=== PATIENT | male | born 1945 | race Caucasian/White ===

== ENCOUNTER 2020-08-12 18:36 | Emergency (ER) | payer MEDICAID, MEDICARE ==
[~2020-08-12] VITALS: Ht 165.1 cm; Wt 69.4 kg
[2020-08-12 18:40] VITALS: BP 143/63
--- NOTE | 2020-08-12 18:49 | NUR ---
C/O CONSTIPATION AND BILAT LOWER QUADRANT ABD PAIN 05/04. PT STATES LBM WAS 08/10/20. PT DENIES N/V. ABD SOFT/FLAT AND NON TENDER TO PALPATION, BOWEL SOUNDS PRESENT X4. BED IN LOW POSITION, SIDE RAIL UP X1
--- NOTE | 2020-08-12 18:53 | NUR ---
XRAY AT BEDSIDE
--- NOTE | 2020-08-12 19:16 | NUR ---
REPORT RECEIVED FROM BETINA RIVERA FOR CONTINUITY OF CARE
--- NOTE | 2020-08-12 19:27 | NUR ---
ERMD AT BEDSIDE
[2020-08-12] MEDS ORDERED: SODIUM PHOSPHATE 118 ML ENEM RC ONE (19:30)
--- NOTE | 2020-08-12 19:48 | NUR ---
ADMINISTERED FLEET ENEMA, PT TOLERATED WELL.
[2020-08-12] MEDS ORDERED: MINERAL OIL 135 ML ENEM RC ONE (20:15)
--- NOTE | 2020-08-12 20:19 | NUR ---
PT STATES LITTLE RELIEF WITH FLEET ENEMA. ERMD MADE AWARE. ORDERS RECEIVED. MINERAL OIL ENEMA ADMINISTERED. PT TOLERATED WELL.
[2020-08-12 21:07] VITALS: BP 143/63
--- NOTE | 2020-08-12 21:07 | NUR ---
Patient discharged with v/s stable. Written and verbal after care instructions given and explained. Patient alert, oriented and verbalized understanding of instructions. Ambulatory with steady gait. All questions addressed prior to discharge. ID band removed. Patient advised to follow up with PMD. Opportunity to ask questions provided and answered.
== END 2020-08-12 21:07 | disposition home or self-care (01) ==
LOC: MED 18:36
DX: K59.00 Constipation, unspecified (principal); I11.0 Hypertensive heart disease with heart failure; E11.9 Type 2 diabetes mellitus without complications; Z98.890 Other specified postprocedural states
CPT/HCPCS: 74018; 99284; Q0092

== ENCOUNTER 2021-01-10 17:51 | Emergency (ER) | payer MEDICARE ==
[~2021-01-10] VITALS: Ht 170.2 cm; Wt 68.0 kg
[2021-01-10 18:07] VITALS: BP 168/70
--- NOTE | 2021-01-10 18:45 | NUR ---
PT ON MONITOR
--- NOTE | 2021-01-10 18:53 | NUR ---
75 YEAR OLD MALE COMPLAINS OF CHEST PAIN X LAST NIGHT. PER PATIENT, HE FELT SEVERE CHEST PAIN 10/10 WITH SOB LAST NIGHT PROMPTING HIM TO CONSUME 3 DOSES NITROGLYCERIN. PATIENT FELT RELIEF POST MEDICATION ADMINISTRATION. TODAY, SIMILAR CHEST PAIN FELT; DENIES SOB, NAUSEA, VOMITING, SWEATING, TINGLING SENSATION, DIZZINESS. NO NITROGLYCERIN ADMINISTRATION TODAY. NORMAL HEART RATE AND RHYTHM HEARD. HR 67, BP 132/81, SPO2 98% RA. AO4, BREATHING EVEN AND UNLABORED, SKIN WARN AND DRY. BED IN LOWEST POSITION, LOCKED, X1 SIDERAIL UP. PMH - OPEN HEART SX NKA
[2021-01-10 19:00] LABS: BASOPHILS # (AUTO) 0.1 K/uL (0.00-0.22); EOSINOPHILS # (AUTO) 0.3 K/uL (0-0.4); EOSINOPHILS % (AUTO) 4.4 % (0.0-4.0); HEMATOCRIT 36.9 % (36-52); HEMOGLOBIN 12.4 g/dL (12.0-18.0); LYMPHOCYTES # (AUTO) 2.9 K/uL (2.0-11.5); MEAN CORPUSCULAR HEMOGLOBIN 30 pg (27-31); MEAN CORPUSCULAR HGB CONC 34 g/dL (33-37); MEAN CORPUSCULAR VOLUME 89.5 fL (80-94); MONOCYTES # (AUTO) 0.6 K/uL (0.8-1.0); MONOCYTES % (AUTO) 9.1 % (1.7-9.3); NEUTROPHILS # (AUTO) 3.1 K/uL (1.8-7.7); NEUTROPHILS % (AUTO) 44.5 % (42.2-75.2); PLATELET COUNT (AUTO) 155 K/uL (140-450); RED BLOOD CELL COUNT(AUTO) 4.12 MIL/uL (4.20-6.10); RED CELL DISTRIBUTION WIDTH 14.2 % (11.6-13.7)
--- NOTE | 2021-01-10 19:05 | NUR ---
REPORT GIVEN TO KAREN RIVERA. TRANSFER OF CARE AT THIS POINT.
--- NOTE | 2021-01-10 19:14 | NUR ---
Assumed patient care. Received report from NICOLE Cantrell
[2021-01-10 19:15] LABS: ALBUMIN 4.1 g/dL (3.4-5.0); ANION GAP 9.9 (8-16); ASPARTATE AMINOTRANSFERASE 14 U/L (15-37); CHLORIDE 105 mmol/L (98-107); CREATININE 0.9 mg/dL (0.6-1.3); GLUCOSE 122 mg/dL (74-106); POTASSIUM 3.9 mmol/L (3.5-5.1); SODIUM SERUM 141 mmol/L (136-145); TOTAL BILIRUBIN 0.4 mg/dL (0.0-1.0); UREA NITROGEN, BLOOD 14 mg/dL (7-18)
[2021-01-10 21:30] VITALS: BP 156/63
--- NOTE | 2021-01-10 21:31 | NUR ---
Patient does not wish to proceed with medical care recommended by Dr. Beltran. Patient given information related to possible complications, up to and including , which could occur as a result of leaving hospital at this time. Patient verbalizes understanding of risks involved leaving against medical advice. Patient has signed AMA form.
== END 2021-01-10 21:31 | disposition left against medical advice (07) ==
LOC: MED 17:51
DX: I25.10 Atherosclerotic heart disease of native coronary artery without angina pectoris (principal); I10 Essential (primary) hypertension; E11.9 Type 2 diabetes mellitus without complications; E78.5 Hyperlipidemia, unspecified; Z95.1 Presence of aortocoronary bypass graft
CPT/HCPCS: 36415; 71045; 80053; 83880; 84484; 85025; 93005; 99285

== ENCOUNTER 2021-01-16 13:15 | Emergency (ER) | payer MEDICARE ==
[~2021-01-16] VITALS: Ht 170.2 cm; Wt 68.0 kg
--- NOTE | 2021-01-16 13:22 | NUR ---
PT AMBULATED TO BED 3.
[2021-01-16 13:27] VITALS: BP 147/69
--- NOTE | 2021-01-16 13:34 | NUR ---
75 YEAR OLD MALE COMPLAINS OF CHEST PAIN X TODAY. PATIENT STATES SITTING DOWN WHEN ONSET OF PAIN CAME ABOUT. DENIES NAUSEA/VOMITING, SOB, DIZZINESS, SWEATING, HEADACHE. PAIN 4/10, RADIATED TO LEFT SHOULDER/JAW, LASTED MINUTES. PATIENT ADMINISTERED 3 NITRO TO ADDRESS PAIN; EFFECTIVE IN RELIEVING PAIN. PATIENT CAME TO ER LAST WEEK FOR SAME REASON. AO4, BREATHING EVEN AND UNLABORED, SKIN WARM AND DRY. BED IN LOWEST POSITION, LOCKED, X1 SIDERAIL UP. PATINET ON MONITOR. PMH - HDL, HTN, DM, HEART SX NKA
[2021-01-16] MEDS ORDERED: ASPIRIN 81 MG TAB.CHEW PO ONE (14:05)
[2021-01-16 14:13] LABS: BASOPHILS # (AUTO) 0.1 K/uL (0.00-0.22); BASOPHILS % (AUTO) 0.8 % (0.0-2.0); EOSINOPHILS # (AUTO) 0.3 K/uL (0-0.4); EOSINOPHILS % (AUTO) 3.9 % (0.0-4.0); HEMATOCRIT 36.1 % (36-52); HEMOGLOBIN 12.2 g/dL (12.0-18.0); LYMPHOCYTES # (AUTO) 2.7 K/uL (2.0-11.5); MEAN CORPUSCULAR HEMOGLOBIN 30 pg (27-31); MEAN CORPUSCULAR HGB CONC 34 g/dL (33-37); MEAN CORPUSCULAR VOLUME 90.3 fL (80-94); MONOCYTES # (AUTO) 0.7 K/uL (0.8-1.0); MONOCYTES % (AUTO) 8.6 % (1.7-9.3); NEUTROPHILS # (AUTO) 3.8 K/uL (1.8-7.7); NEUTROPHILS % (AUTO) 50.7 % (42.2-75.2); PLATELET COUNT (AUTO) 144 K/uL (140-450); RED CELL DISTRIBUTION WIDTH 13.7 % (11.6-13.7); WHITE BLOOD COUNT (AUTO) 7.6 K/uL (4.8-10.8)
[2021-01-16 14:26] LABS: ALBUMIN 4.1 g/dL (3.4-5.0); ASPARTATE AMINOTRANSFERASE 12 U/L (15-37); CARBON DIOXIDE 26.8 mmol/L (21-32); CHLORIDE 107 mmol/L (98-107); CREATININE 0.8 mg/dL (0.6-1.3); GLUCOSE 103 mg/dL (74-106); POTASSIUM 3.8 mmol/L (3.5-5.1); SODIUM SERUM 142 mmol/L (136-145); TOTAL BILIRUBIN 0.6 mg/dL (0.0-1.0); UREA NITROGEN, BLOOD 12 mg/dL (7-18)
[2021-01-16 15:36] VITALS: BP 147/69
--- NOTE | 2021-01-16 15:36 | NUR ---
Patient discharged with v/s stable. Written and verbal after care instructions given and explained. Patient verbalized understanding. Ambulatory with steady gait. All questions addressed prior to discharge. Advised to follow up with PMD.
== END 2021-01-16 15:36 | disposition home or self-care (01) ==
LOC: MED 13:15
DX: R13.10 Dysphagia, unspecified (principal); I11.9 Hypertensive heart disease without heart failure; E11.9 Type 2 diabetes mellitus without complications
CPT/HCPCS: 36415; 71045; 80053; 83880; 84484; 85025; 93005; 99285